=== PATIENT | male | born 1950 | race Caucasian/White ===

== ENCOUNTER 2019-04-22 05:34 | Inpatient (IN) | payer MEDICARE, MEDICAID ==
[~2019-04-22] VITALS: Ht 188 cm; Wt 83.5 kg
[2019-04-22] MEDS ORDERED: ONDANSETRON 2MG/ML, 2ML ONE (05:44)
--- NOTE | 2019-04-22 05:54 | NUR ---
PT BIB [facility] FOR ALOC. PT LIVES WITH MOTHER AND IS DEVELOPMENTALLY DELAYED. MOTHER REPORTS TO EMS HE HAD A GLF YESTERDAY. PT HAS A BRUISE TO HIS RIGHT EYE WITH SOME SWELLING. PT IS ALERT BUT ONLY KNOWS SELF. PT ARRIVED WITH EMS VOMITING. PT GIVEN ZOFRAN. PT HAS BEEN SEEN BY DR BARRIENTOS. EMS REPORTS FAMILY IS ON THEIR WAY. VS STABLE AT THIS TIME. WILL CONTINUE TO MONITOR.
[2019-04-22] MEDS ORDERED: ACETAMINOPHEN 650 MG SUPP ONE (05:59)
[2019-04-22] MEDS ORDERED: PLEASE ENTER ALLERGIES MC SCH (06:00)
[2019-04-22] MEDS ORDERED: ONDANSETRON 2MG/ML, 2ML IVPush ONE (06:00)
[2019-04-22] MEDS ORDERED: SODIUM CHLORIDE FLUSH 10ML SYR IVF ONE (06:00)
[2019-04-22] MEDS ORDERED: ACETAMINOPHEN 650 MG SUPP PR ONE (06:00)
[2019-04-22 06:30] LABS: MICROSCOPIC NOT IND
[2019-04-22 06:34] LABS: CULTURE INDICATED? NO
--- NOTE | 2019-04-22 06:48 | NUR ---
PT RESTING IN ROOM. NO ACUTE DISTRESS NOTED. VS STABLE. WILL CONTINUE TO MONITOR.
[2019-04-22 06:56] LABS: BASOPHILS # (AUTO) 0.01 x10^3/uL (0-0.1); BASOPHILS % (AUTO) 0 % (0-1); EOSINOPHILS # (AUTO) 0.03 x10^3/uL (0-0.4); EOSINOPHILS % (AUTO) 0 % (1-7); LYMPHOCYTES # (AUTO) 0.83 x10^3/uL (1-3.4); LYMPHOCYTES % (AUTO) 10 % (22-44); MD NO; MEAN CORPUSCULAR HEMOGLOBIN 34.7 pg (27.5-34.5); MEAN CORPUSCULAR HGB CONC 33.8 g/dL (33.2-36.2); MEAN CORPUSCULAR VOLUME 102.6 fL (81-97); MONOCYTES # (AUTO) 0.35 x10^3/uL (0.2-0.8); MONOCYTES % (AUTO) 4 % (2-9); NEUTROPHILS % (AUTO) 85 % (42-75); PLATELET COUNT 190 x10^3/uL (130-400); RED BLOOD COUNT 4.74 x10^6/uL (4.38-5.82); RED CELL DISTRIBUTION WIDTH 13.3 % (9.4-14.8)
--- NOTE | 2019-04-22 06:57 | NUR ---
RECEIVED BEDSIDE REPORT FROM JULITO JAIN.
--- NOTE | 2019-04-22 06:57 | NUR ---
BEDSIDE REPORT GIVEN TO JULITO LOZANO AND JULITO HOWARD
[2019-04-22 07:09] LABS: INTERNATIONAL NORMALIZED RATIO 1.05 (0.93-1.1)
[2019-04-22 07:14] LABS: ALBUMIN 3.9 g/dL (3.4-5.0); ANION GAP 9 mmol/L (5-15); CALCIUM 8.6 mg/dL (8.5-10.1); CHLORIDE 107 mmol/L (98-107)
[2019-04-22 07:20] LABS: ALANINE AMINOTRANSFERASE 29 U/L (12-78); ALKALINE PHOSPHATASE 76 U/L (45-117); BILIRUBIN,TOTAL 1.6 mg/dL (0.2-1.0); CREATININE 0.91 mg/dL (0.7-1.3); TOTAL PROTEIN 7.2 g/dL (6.4-8.2)
[2019-04-22 07:22] LABS: SALICYLATE LEVEL < 1.7 mg/dL (2.8-20.0)
--- NOTE | 2019-04-22 07:26 | NUR ---
PT RESTING ON GURNEY AT THIS TIME. NO C/O PAIN, N/V, SOB. VSS. PT ORIENTED TO SELF ONLY, FOLLOWING VERBAL COMMANDS.
--- NOTE | 2019-04-22 09:33 | NUR ---
left message for [facility] informing them family is bedside.
--- NOTE | 2019-04-22 09:51 | NUR ---
late entry for 0830 PT RESTING ON GURNEY. NO ACUTE DISTRESS NOTED. WILL CONTINUE TO MONITOR.
[2019-04-22] MEDS ORDERED: ONDANSETRON 2MG/ML, 2ML IVPush PRN (10:30)
[2019-04-22] MEDS ORDERED: ENALAPRILAT 1.25 MG/ML, 2ML IVPush PRN (10:30)
[2019-04-22] MEDS ORDERED: POLYETHYLENE GLYCOL 17 GM PACKET PO PRN (10:30)
[2019-04-22] MEDS ORDERED: ONDANSETRON ODT 4 MG PO PRN (10:30)
--- NOTE | 2019-04-22 10:49 | NUR ---
PT WITH ADMIT ORDERS. MOTHER AT BEDSIDE, REPORT GIVEN TO GABY VILA. AWAITING TRANSPORT.
[2019-04-22 12:55] VITALS: BP 136/74
[2019-04-22] MEDS ORDERED: GLUCAGON 1 MG IM PRN (14:30)
[2019-04-22] MEDS ORDERED: DEXTROSE 50%, 50ML SYRINGE IVPush PRN (14:30)
[2019-04-22] MEDS ORDERED: DEXTROSE 4 GM TAB.CHEW PO PRN (14:30)
[2019-04-22] MEDS: INSULIN LISPRO 100 UNITS/ML, PEN SQ-INSULIN SCH ×3 (17:00→21:00)
[2019-04-22] MEDS ORDERED: NICOTINE 21 MG/24 HR PATCH.TD24 TD SCH (17:00)
[2019-04-22 19:20] VITALS: BP 150/82
[2019-04-22] MEDS ORDERED: LORazepam 2 MG/ML, 1ML IVPush ONE (19:30)
[2019-04-22] MEDS ORDERED: LORazepam 2 MG/ML, 1ML ONE (19:45)
[2019-04-22] MEDS ORDERED: LEVETIRACETAM 1,000 MG in SODIUM CHLORIDE 0.9% 100 ML IV ONE (20:00)
--- NOTE | 2019-04-22 20:18 | NUR ---
VERIFIED WITH NURSING WHO VERIFIED WITH RESIDENT THAT 3000MG OF LEVETIRACETAM IS TO BE GIVEN TONIGHT (WAS ENTERED THREE SEPARATE 1000MG IV DOSES) Signed: 04/22/19 at 2019 by Faustina CLEVELAND
[2019-04-22] MEDS: SODIUM CHLORIDE FLUSH 10ML SYR IVF SCH (20:41)
[2019-04-22] MEDS: PRAVASTATIN 40 MG TABLET PO SCH (21:00)
[2019-04-22] MEDS: INSULIN GLARGINE 100 UNITS/ML, PEN SQ-INSULIN SCH (21:00)
[2019-04-22] MEDS: LEVETIRACETAM 1,000 MG in SODIUM CHLORIDE 0.9% 100 ML IV SCH (21:01)
[2019-04-23 00:26] VITALS: BP 120/74
[2019-04-23 03:41] VITALS: BP 120/77
[2019-04-23] MEDS: INSULIN LISPRO 100 UNITS/ML, PEN SQ-INSULIN SCH ×6 (06:23→20:28)
[2019-04-23 06:47] VITALS: BP 130/74
[2019-04-23] MEDS ORDERED: LEVETIRACETAM 1,000 MG in SODIUM CHLORIDE 0.9% 100 ML IV SCH (08:00)
[2019-04-23 08:07] LABS: BASOPHILS % (AUTO) 0 % (0-1); EOSINOPHILS # (AUTO) 0.02 x10^3/uL (0-0.4); EOSINOPHILS % (AUTO) 0 % (1-7); LYMPHOCYTES # (AUTO) 0.85 x10^3/uL (1-3.4); LYMPHOCYTES % (AUTO) 12 % (22-44); MD NO; MEAN CORPUSCULAR HEMOGLOBIN 34.2 pg (27.5-34.5); MEAN CORPUSCULAR HGB CONC 34.3 g/dL (33.2-36.2); MEAN CORPUSCULAR VOLUME 99.7 fL (81-97); MEAN PLATELET VOLUME 6.4 fL (7.4-10.4); MONOCYTES # (AUTO) 0.33 x10^3/uL (0.2-0.8); MONOCYTES % (AUTO) 5 % (2-9); NEUTROPHILS # (AUTO) 5.95 x10^3/uL (1.8-6.8); NEUTROPHILS % (AUTO) 83 % (42-75); PLATELET COUNT 171 x10^3/uL (130-400); RED BLOOD COUNT 4.45 x10^6/uL (4.38-5.82); RED CELL DISTRIBUTION WIDTH 13.3 % (9.4-14.8)
[2019-04-23] MEDS: SODIUM CHLORIDE FLUSH 10ML SYR IVF SCH ×2 (08:09→20:29)
[2019-04-23] MEDS: LEVETIRACETAM 1,000 MG in SODIUM CHLORIDE 0.9% 100 ML IV SCH (08:09)
[2019-04-23 08:19] LABS: ALANINE AMINOTRANSFERASE 25 U/L (12-78); ALBUMIN 3.6 g/dL (3.4-5.0); ANION GAP 9 mmol/L (5-15); CALCIUM 8.4 mg/dL (8.5-10.1); CHLORIDE 109 mmol/L (98-107); CREATININE 0.76 mg/dL (0.7-1.3)
[2019-04-23 08:21] LABS: ALKALINE PHOSPHATASE 73 U/L (45-117); BILIRUBIN,TOTAL 2.5 mg/dL (0.2-1.0); TOTAL PROTEIN 6.7 g/dL (6.4-8.2)
[2019-04-23 11:13] VITALS: BP 131/77
[2019-04-23] MEDS ORDERED: TAMSULOSIN 0.4 MG CAP.ER.24H PO ONE (14:45)
[2019-04-23 15:53] VITALS: BP 136/83
[2019-04-23] MEDS: SODIUM CHLORIDE 0.9% 1,000 ML IV SCH ×2 (15:55→20:28)
[2019-04-23] MEDS: NICOTINE 21 MG/24 HR PATCH.TD24 TD SCH (16:35)
[2019-04-23] MEDS: INSULIN GLARGINE 100 UNITS/ML, PEN SQ-INSULIN SCH (17:56)
[2019-04-23 19:32] VITALS: BP 150/74
[2019-04-23] MEDS: LEVETIRACETAM 750 MG in SODIUM CHLORIDE 0.9% 100 ML IV SCH (20:28)
[2019-04-23] MEDS: PRAVASTATIN 40 MG TABLET PO SCH (20:29)
[2019-04-24 00:27] LABS: MICROSCOPIC INDICATED
[2019-04-24 00:55] VITALS: BP 157/69
[2019-04-24 04:16] VITALS: BP 145/83
[2019-04-24] MEDS: INSULIN LISPRO 100 UNITS/ML, PEN SQ-INSULIN SCH ×6 (06:20→20:32)
[2019-04-24] MEDS: SODIUM CHLORIDE FLUSH 10ML SYR IVF SCH ×2 (08:53→20:32)
[2019-04-24] MEDS: TAMSULOSIN 0.4 MG CAP.ER.24H PO SCH (08:53)
[2019-04-24] MEDS: LEVETIRACETAM 750 MG in SODIUM CHLORIDE 0.9% 100 ML IV SCH ×2 (08:53→20:28)
[2019-04-24 08:55] VITALS: BP 148/87
[2019-04-24] MEDS: SODIUM CHLORIDE 0.9% 1,000 ML IV SCH (11:50)
--- NOTE | 2019-04-24 13:23 | NUR ---
REC: NPO with NGT for now Addendum: 04/24/19 at 1323 by Opal JOHNSON Amended: Links added.
--- NOTE | 2019-04-24 13:23 | NUR ---
[place] sheet with diet recommendations posted in room. Addendum: 04/24/19 at 1323 by Opal JOHNSON Amended: Links added.
[2019-04-24 13:48] VITALS: BP 144/79
[2019-04-24] MEDS: NICOTINE 21 MG/24 HR PATCH.TD24 TD SCH (18:03)
[2019-04-24 18:41] VITALS: BP 141/79
[2019-04-24] MEDS: PRAVASTATIN 40 MG TABLET PO SCH (20:32)
[2019-04-24] MEDS: INSULIN GLARGINE 100 UNITS/ML, PEN SQ-INSULIN SCH (20:32)
[2019-04-25] MEDS: SODIUM CHLORIDE 0.9% 1,000 ML IV SCH ×2 (00:03→13:32)
[2019-04-25 01:16] VITALS: BP 143/81
[2019-04-25 04:07] VITALS: BP 132/78
[2019-04-25 05:42] LABS: CHLORIDE 111 mmol/L (98-107)
[2019-04-25 06:00] LABS: ANION GAP 11 mmol/L (5-15); CALCIUM 8.3 mg/dL (8.5-10.1); CREATININE 0.66 mg/dL (0.7-1.3)
[2019-04-25 06:55] VITALS: BP 128/79
[2019-04-25] MEDS: INSULIN LISPRO 100 UNITS/ML, PEN SQ-INSULIN SCH ×5 (07:28→22:36)
[2019-04-25] MEDS: TAMSULOSIN 0.4 MG CAP.ER.24H PO SCH (08:33)
[2019-04-25] MEDS: LEVETIRACETAM 750 MG in SODIUM CHLORIDE 0.9% 100 ML IV SCH ×2 (08:37→20:31)
[2019-04-25] MEDS: SODIUM CHLORIDE FLUSH 10ML SYR IVF SCH ×2 (08:37→22:36)
[2019-04-25 13:34] VITALS: BP 140/81
[2019-04-25] MEDS: NICOTINE 21 MG/24 HR PATCH.TD24 TD SCH (16:38)
[2019-04-25] MEDS: D5%-0.9% NACL 1,000 ML IV SCH (16:38)
[2019-04-25 21:17] VITALS: BP 142/78
[2019-04-25] MEDS: ACETAMINOPHEN 325 MG TABLET PO PRN (22:34)
[2019-04-25] MEDS: PRAVASTATIN 40 MG TABLET PO SCH (22:35)
[2019-04-26] MEDS: D5%-0.9% NACL 1,000 ML IV SCH (02:33)
[2019-04-26 05:31] LABS: ANION GAP 6 mmol/L (5-15); CALCIUM 8.3 mg/dL (8.5-10.1); CHLORIDE 113 mmol/L (98-107)
[2019-04-26 05:32] LABS: CREATININE 0.65 mg/dL (0.7-1.3)
[2019-04-26 06:12] LABS: HEMOGLOBIN A1C 6.4 % (4.2-6.3)
[2019-04-26] MEDS ORDERED: SODIUM CHLORIDE 0.9% 1,000 ML IV SCH (06:30)
[2019-04-26] MEDS ORDERED: AMPICILLIN 500 MG in SODIUM CHLORIDE 0.9% 100 ML IV SCH (06:30)
[2019-04-26 06:50] VITALS: BP 152/79
[2019-04-26] MEDS: INSULIN LISPRO 100 UNITS/ML, PEN SQ-INSULIN SCH ×4 (07:22→23:04)
[2019-04-26 07:59] LABS: MEAN CORPUSCULAR HEMOGLOBIN 33.9 pg (27.5-34.5); MEAN CORPUSCULAR HGB CONC 33.6 g/dL (33.2-36.2); MEAN CORPUSCULAR VOLUME 100.9 fL (81-97); MEAN PLATELET VOLUME 6.8 fL (7.4-10.4); PLATELET COUNT 160 x10^3/uL (130-400); RED BLOOD COUNT 4.18 x10^6/uL (4.38-5.82); RED CELL DISTRIBUTION WIDTH 13.1 % (9.4-14.8)
[2019-04-26 08:15] LABS: BASOPHILS % (AUTO) 0 % (0-1); EOSINOPHILS # (AUTO) 0.04 x10^3/uL (0-0.4); EOSINOPHILS % (AUTO) 1 % (1-7); LYMPHOCYTES % (AUTO) 6 % (22-44); MD SCAN; MONOCYTES # (AUTO) 0.19 x10^3/uL (0.2-0.8); MONOCYTES % (AUTO) 2 % (2-9); NEUTROPHILS % (AUTO) 91 % (42-75)
[2019-04-26] MEDS: SODIUM CHLORIDE FLUSH 10ML SYR IVF SCH ×2 (09:08→22:57)
[2019-04-26] MEDS: TAMSULOSIN 0.4 MG CAP.ER.24H PO SCH (09:08)
[2019-04-26] MEDS: PIPERACILLIN/TAZO/PMX 4.5GM 100 ML IV SCH ×3 (09:09→22:57)
[2019-04-26] MEDS: LEVETIRACETAM 750 MG in SODIUM CHLORIDE 0.9% 100 ML IV SCH (10:03)
[2019-04-26 12:34] VITALS: BP 136/82
[2019-04-26] MEDS: ACETAMINOPHEN 325 MG TABLET PO PRN (12:46)
[2019-04-26] MEDS ORDERED: POTASSIUM PHOSPHATE 44 MEQ in SODIUM CHLORIDE 0.9% 500 ML IV ONE (16:00)
[2019-04-26] MEDS: INSULIN GLARGINE 100 UNITS/ML, PEN SQ-INSULIN SCH ×2 (16:15→23:12)
[2019-04-26] MEDS: NICOTINE 21 MG/24 HR PATCH.TD24 TD SCH (17:38)
[2019-04-26 20:36] VITALS: BP 137/86
[2019-04-26] MEDS: PRAVASTATIN 40 MG TABLET PO SCH (22:57)
[2019-04-26] MEDS: LEVETIRACETAM 100 MG/ML ORAL SOL NG SCH (22:58)
[2019-04-27 02:44] VITALS: BP 126/79
[2019-04-27] MEDS: PIPERACILLIN/TAZO/PMX 4.5GM 100 ML IV SCH ×4 (04:55→22:34)
[2019-04-27 05:16] LABS: BASOPHILS # (AUTO) 0.02 x10^3/uL (0-0.1); BASOPHILS % (AUTO) 0 % (0-1); EOSINOPHILS # (AUTO) 0.27 x10^3/uL (0-0.4); EOSINOPHILS % (AUTO) 4 % (1-7); LYMPHOCYTES # (AUTO) 0.55 x10^3/uL (1-3.4); LYMPHOCYTES % (AUTO) 8 % (22-44); MD NO; MEAN CORPUSCULAR HEMOGLOBIN 34.2 pg (27.5-34.5); MEAN CORPUSCULAR HGB CONC 33.7 g/dL (33.2-36.2); MEAN CORPUSCULAR VOLUME 101.7 fL (81-97); MEAN PLATELET VOLUME 7.1 fL (7.4-10.4); MONOCYTES # (AUTO) 0.41 x10^3/uL (0.2-0.8); MONOCYTES % (AUTO) 6 % (2-9); NEUTROPHILS # (AUTO) 5.26 x10^3/uL (1.8-6.8); NEUTROPHILS % (AUTO) 81 % (42-75); PLATELET COUNT 162 x10^3/uL (130-400); RED BLOOD COUNT 4.04 x10^6/uL (4.38-5.82); RED CELL DISTRIBUTION WIDTH 13.4 % (9.4-14.8)
[2019-04-27 05:24] LABS: ALANINE AMINOTRANSFERASE 25 U/L (12-78); ALBUMIN 2.3 g/dL (3.4-5.0); ANION GAP 6 mmol/L (5-15); CALCIUM 7.8 mg/dL (8.5-10.1); CHLORIDE 111 mmol/L (98-107)
[2019-04-27 05:26] LABS: ALKALINE PHOSPHATASE 62 U/L (45-117); BILIRUBIN,TOTAL 1.1 mg/dL (0.2-1.0); CREATININE 0.65 mg/dL (0.7-1.3)
[2019-04-27] MEDS ORDERED: POTASSIUM CHLORIDE 10% 40 MEQ/30 ML UDC PO ONE (07:00)
[2019-04-27] MEDS ORDERED: POTASSIUM PHOSPHATE 22 MEQ in SODIUM CHLORIDE 0.9% 500 ML IV ONE (07:00)
[2019-04-27 07:30] VITALS: BP 136/81
[2019-04-27] MEDS: SODIUM CHLORIDE FLUSH 10ML SYR IVF SCH ×2 (07:47→21:00)
[2019-04-27] MEDS: LEVETIRACETAM 100 MG/ML ORAL SOL NG SCH ×2 (07:47→20:53)
[2019-04-27] MEDS: TAMSULOSIN 0.4 MG CAP.ER.24H PO SCH (07:47)
[2019-04-27] MEDS: INSULIN LISPRO 100 UNITS/ML, PEN SQ-INSULIN SCH ×3 (07:48→21:18)
[2019-04-27] MEDS: SODIUM CHLORIDE 0.9% 1,000 ML IV SCH (07:50)
[2019-04-27] MEDS ORDERED: POTASSIUM CHLORIDE 20 MEQ PACKET ONE (07:59)
[2019-04-27 14:32] VITALS: BP 134/75
[2019-04-27] MEDS: NICOTINE 21 MG/24 HR PATCH.TD24 TD SCH (16:43)
[2019-04-27 18:45] VITALS: BP 135/82
[2019-04-27] MEDS: PRAVASTATIN 40 MG TABLET PO SCH (20:53)
[2019-04-27] MEDS: ACETAMINOPHEN 325 MG TABLET PO PRN (20:53)
[2019-04-27] MEDS: INSULIN GLARGINE 100 UNITS/ML, PEN SQ-INSULIN SCH (21:19)
[2019-04-28 01:09] VITALS: BP 128/80
[2019-04-28] MEDS: INSULIN LISPRO 100 UNITS/ML, PEN SQ-INSULIN SCH ×8 (02:47→20:58)
[2019-04-28] MEDS: PIPERACILLIN/TAZO/PMX 4.5GM 100 ML IV SCH ×4 (04:08→22:32)
[2019-04-28] MEDS: SODIUM CHLORIDE 0.9% 1,000 ML IV SCH (04:08)
[2019-04-28 05:43] LABS: BASOPHILS % (AUTO) 0 % (0-1); EOSINOPHILS # (AUTO) 0.29 x10^3/uL (0-0.4); EOSINOPHILS % (AUTO) 6 % (1-7); LYMPHOCYTES # (AUTO) 0.58 x10^3/uL (1-3.4); LYMPHOCYTES % (AUTO) 12 % (22-44); MD NO; MEAN CORPUSCULAR HEMOGLOBIN 33.7 pg (27.5-34.5); MEAN CORPUSCULAR VOLUME 102.2 fL (81-97); MEAN PLATELET VOLUME 7.5 fL (7.4-10.4); MONOCYTES # (AUTO) 0.29 x10^3/uL (0.2-0.8); MONOCYTES % (AUTO) 6 % (2-9); NEUTROPHILS # (AUTO) 3.72 x10^3/uL (1.8-6.8); NEUTROPHILS % (AUTO) 76 % (42-75); PLATELET COUNT 165 x10^3/uL (130-400); RED BLOOD COUNT 4.06 x10^6/uL (4.38-5.82)
[2019-04-28 05:50] LABS: ALBUMIN 2.1 g/dL (3.4-5.0); ANION GAP 9 mmol/L (5-15); CALCIUM 8.1 mg/dL (8.5-10.1); CHLORIDE 109 mmol/L (98-107)
[2019-04-28 05:54] LABS: ALANINE AMINOTRANSFERASE 65 U/L (12-78); ALKALINE PHOSPHATASE 74 U/L (45-117); BILIRUBIN,TOTAL 0.8 mg/dL (0.2-1.0); CREATININE 0.67 mg/dL (0.7-1.3); TOTAL PROTEIN 5.8 g/dL (6.4-8.2)
[2019-04-28 07:07] VITALS: BP 139/92
[2019-04-28] MEDS: SODIUM CHLORIDE FLUSH 10ML SYR IVF SCH ×2 (08:55→20:57)
[2019-04-28] MEDS: TAMSULOSIN 0.4 MG CAP.ER.24H PO SCH (08:56)
[2019-04-28] MEDS: LEVETIRACETAM 100 MG/ML ORAL SOL NG SCH ×2 (08:56→20:57)
[2019-04-28] MEDS ORDERED: INSULIN LISPRO 100 UNITS/ML, PEN SQ-INSULIN SCH ×2 (12:30→16:30)
[2019-04-28 14:45] VITALS: BP 134/86
[2019-04-28] MEDS: NICOTINE 21 MG/24 HR PATCH.TD24 TD SCH (17:39)
[2019-04-28 19:04] VITALS: BP 116/78
[2019-04-28] MEDS: PRAVASTATIN 40 MG TABLET PO SCH (20:57)
[2019-04-28] MEDS: INSULIN GLARGINE 100 UNITS/ML, PEN SQ-INSULIN SCH (20:59)
[2019-04-29] MEDS: INSULIN LISPRO 100 UNITS/ML, PEN SQ-INSULIN SCH ×5 (00:34→08:44)
[2019-04-29 01:10] VITALS: BP 136/81
[2019-04-29] MEDS: PIPERACILLIN/TAZO/PMX 4.5GM 100 ML IV SCH ×4 (04:36→22:00)
[2019-04-29 06:10] LABS: ANION GAP 7 mmol/L (5-15); CALCIUM 8.4 mg/dL (8.5-10.1); CHLORIDE 107 mmol/L (98-107)
[2019-04-29 06:11] LABS: CREATININE 0.69 mg/dL (0.7-1.3)
[2019-04-29 07:24] VITALS: BP 142/84
[2019-04-29] MEDS: LEVETIRACETAM 100 MG/ML ORAL SOL NG SCH ×2 (08:43→21:48)
[2019-04-29] MEDS: SODIUM CHLORIDE FLUSH 10ML SYR IVF SCH ×2 (08:43→21:59)
[2019-04-29] MEDS: TAMSULOSIN 0.4 MG CAP.ER.24H PO SCH (08:44)
[2019-04-29 12:30] VITALS: BP 125/82
[2019-04-29] MEDS: INSULIN REGULAR 100 UNITS/ML, 3ML VIAL SQ-INSULIN SCH ×4 (15:00→21:53)
[2019-04-29] MEDS: NICOTINE 21 MG/24 HR PATCH.TD24 TD SCH (16:24)
[2019-04-29 18:58] VITALS: BP 128/82
[2019-04-29] MEDS: PRAVASTATIN 40 MG TABLET PO SCH (21:49)
[2019-04-29] MEDS: INSULIN GLARGINE 100 UNITS/ML, PEN SQ-INSULIN SCH (21:52)
[2019-04-30 01:38] VITALS: BP 130/81
[2019-04-30] MEDS: INSULIN REGULAR 100 UNITS/ML, 3ML VIAL SQ-INSULIN SCH ×8 (03:41→21:55)
[2019-04-30] MEDS: PIPERACILLIN/TAZO/PMX 4.5GM 100 ML IV SCH ×4 (04:36→22:11)
[2019-04-30 07:00] VITALS: BP 126/78
[2019-04-30 08:09] LABS: ALBUMIN 2.2 g/dL (3.4-5.0); ANION GAP 7 mmol/L (5-15); CALCIUM 8.1 mg/dL (8.5-10.1); CHLORIDE 107 mmol/L (98-107)
[2019-04-30 08:12] LABS: ALANINE AMINOTRANSFERASE 70 U/L (12-78); ALKALINE PHOSPHATASE 95 U/L (45-117); BILIRUBIN,TOTAL 0.9 mg/dL (0.2-1.0); CREATININE 0.69 mg/dL (0.7-1.3); TOTAL PROTEIN 6.2 g/dL (6.4-8.2)
[2019-04-30] MEDS: TAMSULOSIN 0.4 MG CAP.ER.24H PO SCH (09:00)
[2019-04-30] MEDS: LEVETIRACETAM 100 MG/ML ORAL SOL NG SCH ×2 (09:17→21:54)
[2019-04-30] MEDS: SODIUM CHLORIDE FLUSH 10ML SYR IVF SCH ×2 (09:18→21:00)
[2019-04-30 13:00] VITALS: BP 132/84
[2019-04-30] MEDS: NICOTINE 21 MG/24 HR PATCH.TD24 TD SCH (17:00)
[2019-04-30 20:39] VITALS: BP 125/79
[2019-04-30] MEDS ORDERED: INSULIN GLARGINE 100 UNITS/ML, PEN SQ-INSULIN SCH (21:00)
[2019-04-30] MEDS: PRAVASTATIN 40 MG TABLET PO SCH (21:55)
[2019-05-01 00:25] VITALS: BP 117/75
[2019-05-01] MEDS: INSULIN REGULAR 100 UNITS/ML, 3ML VIAL SQ-INSULIN SCH ×8 (03:09→21:28)
[2019-05-01] MEDS: PIPERACILLIN/TAZO/PMX 4.5GM 100 ML IV SCH ×2 (04:48→11:00)
[2019-05-01 07:00] VITALS: BP 126/83
[2019-05-01 08:51] VITALS: BP 126/85
[2019-05-01] MEDS: SODIUM CHLORIDE FLUSH 10ML SYR IVF SCH ×2 (09:00→21:32)
[2019-05-01] MEDS: LEVETIRACETAM 100 MG/ML ORAL SOL NG SCH ×2 (09:20→21:51)
[2019-05-01 14:00] VITALS: BP 127/74
[2019-05-01] MEDS ORDERED: AZITHROMYCIN 500 MG TABLET PO ONE (14:30)
[2019-05-01] MEDS: CEFTRIAXONE PMX 1GM/50ML 50 ML IV SCH (16:38)
[2019-05-01] MEDS: NICOTINE 21 MG/24 HR PATCH.TD24 TD SCH (16:53)
[2019-05-01 19:55] VITALS: BP 121/76
[2019-05-01] MEDS: PRAVASTATIN 40 MG TABLET PO SCH (21:28)
[2019-05-01] MEDS: INSULIN GLARGINE 100 UNITS/ML, PEN SQ-INSULIN SCH (21:28)
[2019-05-02 00:41] VITALS: BP 138/85
[2019-05-02] MEDS: INSULIN REGULAR 100 UNITS/ML, 3ML VIAL SQ-INSULIN SCH ×8 (03:16→22:34)
[2019-05-02 05:31] LABS: MEAN CORPUSCULAR HEMOGLOBIN 34.1 pg (27.5-34.5); MEAN CORPUSCULAR HGB CONC 33.6 g/dL (33.2-36.2); MEAN CORPUSCULAR VOLUME 101.4 fL (81-97); MEAN PLATELET VOLUME 7.4 fL (7.4-10.4); PLATELET COUNT 293 x10^3/uL (130-400); RED BLOOD COUNT 4.42 x10^6/uL (4.38-5.82); RED CELL DISTRIBUTION WIDTH 13.3 % (9.4-14.8)
[2019-05-02 05:43] LABS: ALBUMIN 2.4 g/dL (3.4-5.0); ANION GAP 5 mmol/L (5-15); CALCIUM 8.1 mg/dL (8.5-10.1); CHLORIDE 108 mmol/L (98-107)
[2019-05-02 05:54] LABS: BASOPHILS # (AUTO) 0.01 x10^3/uL (0-0.1); BASOPHILS % (AUTO) 0 % (0-1); EOSINOPHILS # (AUTO) 0.23 x10^3/uL (0-0.4); EOSINOPHILS % (AUTO) 3 % (1-7); LYMPHOCYTES # (AUTO) 1.17 x10^3/uL (1-3.4); LYMPHOCYTES % (AUTO) 17 % (22-44); MD SCAN; MONOCYTES # (AUTO) 0.29 x10^3/uL (0.2-0.8); MONOCYTES % (AUTO) 4 % (2-9); NEUTROPHILS # (AUTO) 5.21 x10^3/uL (1.8-6.8); NEUTROPHILS % (AUTO) 75 % (42-75)
[2019-05-02 06:11] LABS: ALANINE AMINOTRANSFERASE 63 U/L (12-78); ALKALINE PHOSPHATASE 126 U/L (45-117); BILIRUBIN,TOTAL 1.1 mg/dL (0.2-1.0); CREATININE 0.69 mg/dL (0.7-1.3); TOTAL PROTEIN 6.6 g/dL (6.4-8.2)
[2019-05-02 07:00] VITALS: BP 125/79
[2019-05-02] MEDS: INSULIN GLARGINE 100 UNITS/ML, PEN SQ-INSULIN SCH ×2 (08:55→22:33)
[2019-05-02] MEDS: LEVETIRACETAM 100 MG/ML ORAL SOL NG SCH ×2 (08:55→22:18)
[2019-05-02] MEDS: SODIUM CHLORIDE FLUSH 10ML SYR IVF SCH ×2 (08:57→22:19)
[2019-05-02] MEDS ORDERED: AZITHROMYCIN 250 MG TABLET PO SCH (09:00)
[2019-05-02] MEDS: AZITHROMYCIN 200 MG/5 ML, ORAL SUSP PO SCH (09:48)
[2019-05-02 14:00] VITALS: BP 126/78
[2019-05-02] MEDS: CEFTRIAXONE PMX 1GM/50ML 50 ML IV SCH (14:21)
[2019-05-02] MEDS: NICOTINE 21 MG/24 HR PATCH.TD24 TD SCH (16:38)
[2019-05-02 20:25] VITALS: BP 128/82
[2019-05-02] MEDS: PRAVASTATIN 40 MG TABLET PO SCH (22:18)
[2019-05-03 01:10] VITALS: BP 141/88
[2019-05-03] MEDS: INSULIN REGULAR 100 UNITS/ML, 3ML VIAL SQ-INSULIN SCH ×7 (03:10→22:01)
[2019-05-03 05:59] LABS: CALCIUM 8.6 mg/dL (8.5-10.1); CHLORIDE 104 mmol/L (98-107)
[2019-05-03 06:03] LABS: ANION GAP 5 mmol/L (5-15); CREATININE 0.82 mg/dL (0.7-1.3)
[2019-05-03 06:41] VITALS: BP 119/82
[2019-05-03] MEDS: INSULIN GLARGINE 100 UNITS/ML, PEN SQ-INSULIN SCH (08:43)
[2019-05-03] MEDS: SODIUM CHLORIDE FLUSH 10ML SYR IVF SCH ×2 (08:44→20:50)
[2019-05-03] MEDS: AZITHROMYCIN 200 MG/5 ML, ORAL SUSP PO SCH (08:44)
[2019-05-03] MEDS: LEVETIRACETAM 100 MG/ML ORAL SOL NG SCH (08:44)
[2019-05-03] MEDS: ENOXAPARIN 40 MG/0.4 ML SQ SCH (12:02)
[2019-05-03 12:26] VITALS: BP 115/80
--- NOTE | 2019-05-03 13:44 | NUR ---
S[employer]IOR [employer] Recommend: KAILEY/ NTL -Up at 90 -No straws -Assist with meals -Meds floated Addendum: 05/03/19 at [address] Amended: Links added.
[2019-05-03] MEDS: CEFTRIAXONE PMX 1GM/50ML 50 ML IV SCH (14:46)
[2019-05-03] MEDS: NICOTINE 21 MG/24 HR PATCH.TD24 TD SCH (16:51)
[2019-05-03 18:28] VITALS: BP 136/84
[2019-05-03] MEDS: PRAVASTATIN 40 MG TABLET PO SCH (20:50)
[2019-05-03] MEDS: INSULIN HUMULIN 70/30, 3ML PEN SQ-INSULIN SCH (22:01)
[2019-05-04 00:57] VITALS: BP 121/82
[2019-05-04] MEDS: IBUPROFEN 600 MG TABLET PO PRN ×2 (04:49→21:52)
[2019-05-04 04:57] LABS: MEAN CORPUSCULAR HEMOGLOBIN 34.4 pg (27.5-34.5); MEAN CORPUSCULAR HGB CONC 34.2 g/dL (33.2-36.2); MEAN CORPUSCULAR VOLUME 100.7 fL (81-97); MEAN PLATELET VOLUME 7.1 fL (7.4-10.4); PLATELET COUNT 297 x10^3/uL (130-400); RED BLOOD COUNT 4.61 x10^6/uL (4.38-5.82); RED CELL DISTRIBUTION WIDTH 13.4 % (9.4-14.8)
[2019-05-04 05:15] LABS: ANION GAP 8 mmol/L (5-15); CALCIUM 8.8 mg/dL (8.5-10.1); CHLORIDE 106 mmol/L (98-107)
[2019-05-04 05:16] LABS: CREATININE 0.75 mg/dL (0.7-1.3)
[2019-05-04 05:38] LABS: BASOPHILS # (AUTO) 0.02 x10^3/uL (0-0.1); BASOPHILS % (AUTO) 0 % (0-1); EOSINOPHILS # (AUTO) 0.16 x10^3/uL (0-0.4); EOSINOPHILS % (AUTO) 1 % (1-7); LYMPHOCYTES # (AUTO) 1.35 x10^3/uL (1-3.4); LYMPHOCYTES % (AUTO) 11 % (22-44); MD SCAN; MONOCYTES # (AUTO) 0.37 x10^3/uL (0.2-0.8); MONOCYTES % (AUTO) 3 % (2-9); NEUTROPHILS # (AUTO) 10.79 x10^3/uL (1.8-6.8); NEUTROPHILS % (AUTO) 85 % (42-75)
[2019-05-04] MEDS: INSULIN REGULAR 100 UNITS/ML, 3ML VIAL SQ-INSULIN SCH ×4 (06:20→21:53)
[2019-05-04 06:32] VITALS: BP 110/75
[2019-05-04] MEDS: INSULIN HUMULIN 70/30, 3ML PEN SQ-INSULIN SCH ×2 (08:56→21:52)
[2019-05-04] MEDS: SODIUM CHLORIDE FLUSH 10ML SYR IVF SCH ×2 (08:56→21:35)
[2019-05-04] MEDS ORDERED: INSULIN HUMULIN 70/30, 3ML PEN SQ-INSULIN SCH (09:00)
[2019-05-04] MEDS: ENOXAPARIN 40 MG/0.4 ML SQ SCH (11:17)
[2019-05-04] MEDS ORDERED: INSULIN REGULAR 100 UNITS/ML, 3ML VIAL SQ-INSULIN SCH (12:00)
[2019-05-04 12:15] VITALS: BP 154/94
[2019-05-04 12:40] VITALS: BP 160/83
[2019-05-04] MEDS: NICOTINE 21 MG/24 HR PATCH.TD24 TD SCH (16:52)
[2019-05-04 18:52] VITALS: BP 120/84
[2019-05-04] MEDS: PRAVASTATIN 40 MG TABLET PO SCH (21:34)
[2019-05-05 00:46] VITALS: BP 99/51
[2019-05-05 06:18] LABS: BASOPHILS # (AUTO) 0.02 x10^3/uL (0-0.1); BASOPHILS % (AUTO) 0 % (0-1); EOSINOPHILS # (AUTO) 0.19 x10^3/uL (0-0.4); EOSINOPHILS % (AUTO) 2 % (1-7); LYMPHOCYTES # (AUTO) 1.57 x10^3/uL (1-3.4); LYMPHOCYTES % (AUTO) 18 % (22-44); MD NO; MEAN CORPUSCULAR HEMOGLOBIN 34.3 pg (27.5-34.5); MEAN CORPUSCULAR HGB CONC 33.9 g/dL (33.2-36.2); MEAN CORPUSCULAR VOLUME 101.2 fL (81-97); MEAN PLATELET VOLUME 7.5 fL (7.4-10.4); MONOCYTES # (AUTO) 0.49 x10^3/uL (0.2-0.8); MONOCYTES % (AUTO) 6 % (2-9); NEUTROPHILS # (AUTO) 6.27 x10^3/uL (1.8-6.8); NEUTROPHILS % (AUTO) 74 % (42-75); PLATELET COUNT 281 x10^3/uL (130-400); RED BLOOD COUNT 4.78 x10^6/uL (4.38-5.82)
[2019-05-05] MEDS: INSULIN REGULAR 100 UNITS/ML, 3ML VIAL SQ-INSULIN SCH ×4 (06:35→22:43)
[2019-05-05 06:55] VITALS: BP 118/81
[2019-05-05] MEDS: INSULIN HUMULIN 70/30, 3ML PEN SQ-INSULIN SCH ×2 (09:46→22:44)
[2019-05-05] MEDS: SODIUM CHLORIDE FLUSH 10ML SYR IVF SCH ×2 (09:48→21:00)
[2019-05-05] MEDS: ENOXAPARIN 40 MG/0.4 ML SQ SCH (11:12)
[2019-05-05 12:31] VITALS: BP 106/77
[2019-05-05] MEDS: NICOTINE 21 MG/24 HR PATCH.TD24 TD SCH (16:59)
[2019-05-05 19:40] VITALS: BP 118/81
[2019-05-05] MEDS: PRAVASTATIN 40 MG TABLET PO SCH (22:42)
[2019-05-06 01:50] VITALS: BP 95/65
[2019-05-06 06:47] VITALS: BP 120/78
[2019-05-06] MEDS: INSULIN REGULAR 100 UNITS/ML, 3ML VIAL SQ-INSULIN SCH ×4 (07:00→21:18)
[2019-05-06] MEDS: INSULIN HUMULIN 70/30, 3ML PEN SQ-INSULIN SCH ×2 (08:56→21:18)
[2019-05-06] MEDS: SODIUM CHLORIDE FLUSH 10ML SYR IVF SCH ×2 (08:57→21:00)
[2019-05-06] MEDS: ENOXAPARIN 40 MG/0.4 ML SQ SCH (11:56)
[2019-05-06 13:18] VITALS: BP 122/80
[2019-05-06] MEDS: NICOTINE 21 MG/24 HR PATCH.TD24 TD SCH (16:49)
[2019-05-06 18:40] VITALS: BP 121/80
[2019-05-06] MEDS: PRAVASTATIN 40 MG TABLET PO SCH (21:18)
[2019-05-07 04:47] VITALS: BP 124/85
[2019-05-07] MEDS: INSULIN REGULAR 100 UNITS/ML, 3ML VIAL SQ-INSULIN SCH ×4 (06:13→20:49)
[2019-05-07 07:08] VITALS: BP 120/79
[2019-05-07] MEDS ORDERED: INSTRUCTION SEE COMMENTS XX PRN ×2 (08:00)
[2019-05-07] MEDS ORDERED: QUETIAPINE 25MG TABLET PO PRN (08:00)
[2019-05-07] MEDS ORDERED: AVOID BENZODIAZEPINES MC PRN (08:00)
[2019-05-07] MEDS: SODIUM CHLORIDE FLUSH 10ML SYR IVF SCH (09:00)
[2019-05-07] MEDS: INSULIN HUMULIN 70/30, 3ML PEN SQ-INSULIN SCH ×2 (09:21→20:49)
[2019-05-07] MEDS: ENOXAPARIN 40 MG/0.4 ML SQ SCH (12:00)
[2019-05-07 12:29] VITALS: BP 104/71
[2019-05-07] MEDS: NICOTINE 21 MG/24 HR PATCH.TD24 TD SCH (17:40)
[2019-05-07 19:30] VITALS: BP 119/84
[2019-05-07] MEDS: PRAVASTATIN 40 MG TABLET PO SCH (20:49)
[2019-05-07] MEDS: MELATONIN 3 MG TABLET PO SCH (20:49)
[2019-05-08] MEDS: INSULIN REGULAR 100 UNITS/ML, 3ML VIAL SQ-INSULIN SCH ×4 (06:15→20:54)
[2019-05-08 06:41] VITALS: BP 105/74
[2019-05-08 08:16] LABS: CREATININE 0.67 mg/dL (0.7-1.3)
[2019-05-08] MEDS: INSULIN HUMULIN 70/30, 3ML PEN SQ-INSULIN SCH ×2 (09:28→20:54)
[2019-05-08] MEDS: ENOXAPARIN 40 MG/0.4 ML SQ SCH (12:00)
[2019-05-08 13:33] VITALS: BP 114/73
[2019-05-08] MEDS: NICOTINE 21 MG/24 HR PATCH.TD24 TD SCH (17:02)
[2019-05-08 19:54] VITALS: BP 111/78
[2019-05-08] MEDS: PRAVASTATIN 40 MG TABLET PO SCH (20:54)
[2019-05-08] MEDS: MELATONIN 3 MG TABLET PO SCH (20:54)
[2019-05-09] MEDS: INSULIN REGULAR 100 UNITS/ML, 3ML VIAL SQ-INSULIN SCH ×4 (06:45→21:00)
[2019-05-09 09:17] VITALS: BP 120/71
[2019-05-09] MEDS: INSULIN HUMULIN 70/30, 3ML PEN SQ-INSULIN SCH ×2 (09:26→21:03)
[2019-05-09] MEDS: ENOXAPARIN 40 MG/0.4 ML SQ SCH (12:16)
--- NOTE | 2019-05-09 16:49 | NUR ---
REC GROUND/THIN; ORANGE SHEET WITH RECOMMENDED DIET AND SWALLOW STRATEGIES POSTED AT BEDSIDE. Addendum: 05/09/19 at 1649 by Brittanie JOHNSON Amended: Links added.
[2019-05-09] MEDS: NICOTINE 21 MG/24 HR PATCH.TD24 TD SCH (17:03)
[2019-05-09 17:52] VITALS: BP 108/73
[2019-05-09 19:19] VITALS: BP 106/68
[2019-05-09] MEDS: MELATONIN 3 MG TABLET PO SCH (21:04)
[2019-05-09] MEDS: PRAVASTATIN 40 MG TABLET PO SCH (21:04)
[2019-05-10 00:30] VITALS: BP 128/78
[2019-05-10] MEDS: INSULIN REGULAR 100 UNITS/ML, 3ML VIAL SQ-INSULIN SCH ×2 (07:00→11:00)
[2019-05-10 08:34] VITALS: BP 110/75
[2019-05-10] MEDS: INSULIN HUMULIN 70/30, 3ML PEN SQ-INSULIN SCH (10:04)
[2019-05-10] MEDS: ENOXAPARIN 40 MG/0.4 ML SQ SCH (12:12)
[2019-05-10 13:23] VITALS: BP 113/70
== END 2019-05-10 15:00 | disposition home health service (06) | DRG 100 ==
LOC: ED 07:25 → EDIP 10:17 → 4NOR 11:24 → OBSVTOIN 04-23 12:37 → 4NOR 04-23 22:32
PROVIDERS: ADMIT Family Medicine; ATTEND Family Medicine
PROC: 0T9B70Z Drainage of Bladder with Drainage Device, Via Natural or Artificial Opening (ICD-10-PCS; principal; 2019-04-22)
DX: G40.409 Other generalized epilepsy and epileptic syndromes, not intractable, without status epilepticus (principal); J69.0 Pneumonitis due to inhalation of food and vomit; G93.40 Encephalopathy, unspecified; F17.200 Nicotine dependence, unspecified, uncomplicated; I10 Essential (primary) hypertension; N32.89 Other specified disorders of bladder; R13.10 Dysphagia, unspecified; W18.30XA Fall on same level, unspecified, initial encounter; F07.81 Postconcussional syndrome; Y93.89 Activity, other specified; Y92.89 Other specified places as the place of occurrence of the external cause; Y99.8 Other external cause status; Z82.49 Family history of ischemic heart disease and other diseases of the circulatory system; Z86.73 Personal history of transient ischemic attack (TIA), and cerebral infarction without residual deficits; Z79.899 Other long term (current) drug therapy; Z79.4 Long term (current) use of insulin; B95.2 Enterococcus as the cause of diseases classified elsewhere
CPT/HCPCS: 36415; 70450; 70551; 71045; 74018; 80048; 80053; 80307; 81001; 81003; 82140; 82565; 82607; 82962; 83036; 83605; 83735; 84100; 84145; 84443; 85025; 85610; 85730; 87040; 87077; 87086; 87186; 93005; 95819; 96374; G0378; J0696; J1650; J1815; J1953; J2405; J2543; J7042; J0290; J2060; J7030; J7040

== ENCOUNTER 2020-06-08 08:52 | Day surgery (SDC) | payer MEDICARE, MEDICAID ==
[2020-06-05 10:39] LABS: BASOPHILS # (AUTO) 0.01 x10^3/uL (0-0.1); BASOPHILS % (AUTO) 0 % (0-1); EOSINOPHILS # (AUTO) 0.07 x10^3/uL (0-0.4); EOSINOPHILS % (AUTO) 2 % (1-7); LYMPHOCYTES # (AUTO) 1.09 x10^3/uL (1-3.4); LYMPHOCYTES % (AUTO) 35 % (22-44); MD NO; MEAN CORPUSCULAR HEMOGLOBIN 34.1 pg (27.5-34.5); MEAN CORPUSCULAR VOLUME 100.4 fL (81-97); MEAN PLATELET VOLUME 6.8 fL (7.4-10.4); MONOCYTES # (AUTO) 0.17 x10^3/uL (0.2-0.8); MONOCYTES % (AUTO) 5 % (2-9); NEUTROPHILS # (AUTO) 1.81 x10^3/uL (1.8-6.8); NEUTROPHILS % (AUTO) 58 % (42-75); PLATELET COUNT 213 x10^3/uL (130-400); RED BLOOD COUNT 4.53 x10^6/uL (4.38-5.82); RED CELL DISTRIBUTION WIDTH 14.1 % (9.4-14.8)
[2020-06-05 10:46] LABS: ALANINE AMINOTRANSFERASE 39 U/L (12-78); ALBUMIN 4.3 g/dL (3.4-5.0); ANION GAP 5 mmol/L (5-15); CHLORIDE 100 mmol/L (98-107); CREATININE 0.85 mg/dL (0.7-1.3)
[2020-06-05 10:49] LABS: ALKALINE PHOSPHATASE 74 U/L (45-117); BILIRUBIN,TOTAL 1.8 mg/dL (0.2-1.0); CALCIUM 8.8 mg/dL (8.5-10.1); TOTAL PROTEIN 7.3 g/dL (6.4-8.2)
[~2020-06-08] VITALS: Ht 185.4 cm; Wt 63.3 kg
[~2020-06-08 08:52] MED LIST: INSU100C SQ-INSULIN; INSU100I34 SC; INSULIN 75/25 SQ; LISI-167 PO; PRAV20TA2 PO
[2020-06-08] MEDS ORDERED: BUPIVACAINE/EPI 0.5% 1:200K ONE (09:25)
[2020-06-08 09:29] VITALS: BP 97/49
[2020-06-08] MEDS ORDERED: LACTATED RINGERS 1,000 ML IV SCH ×2 (09:33→12:02)
[2020-06-08] MEDS ORDERED: DEXTROSE 50%, 50ML SYRINGE IVPush ONE (10:00)
[2020-06-08] MEDS ORDERED: CHLORHEXIDINE 15 ML UDC MM ONE (10:00)
[2020-06-08] MEDS ORDERED: FENTANYL PF 250 MCG/5ML ONE (10:59)
[2020-06-08] MEDS ORDERED: KETOROLAC 30 MG/1 ML ONE (11:12)
[2020-06-08] MEDS ORDERED: SUGAMMADEX 200 MG/2 ML IVPush ONE (11:12)
[2020-06-08] MEDS ORDERED: NEOSTIGMINE 1 MG/ML, 10ML ONE (11:13)
[2020-06-08] MEDS ORDERED: PROPOFOL 10 MG/ML, 20ML ONE (11:13)
[2020-06-08] MEDS ORDERED: DEXAMETHASONE 4 MG/ML, 1ML ONE (11:13)
[2020-06-08] MEDS ORDERED: ROCURONIUM 10MG/ML,5ML ONE (11:13)
[2020-06-08] MEDS ORDERED: GLYCOPYRROLATE 0.2MG/1ML, 5ML ONE (11:13)
[2020-06-08] MEDS ORDERED: CEFAZOLIN 1,000 MG ONE (11:13)
[2020-06-08] MEDS ORDERED: SUCCINYLCHOLINE 20 MG/ML, 10ML ONE (11:13)
[2020-06-08] MEDS ORDERED: ONDANSETRON 2MG/ML, 2ML ONE (11:13)
[2020-06-08] MEDS ORDERED: DIAZEPAM 5 MG/ML, 2ML IVPush PRN (11:30)
[2020-06-08] MEDS ORDERED: MEPERIDINE/PF 25MG/0.5ML IVPush PRN (11:30)
[2020-06-08] MEDS ORDERED: PROMETHAZINE 25 MG/ML, 1ML IV PRN (11:30)
[2020-06-08] MEDS ORDERED: hydrALAzine 20 MG/ML, 1ML IV PRN (11:30)
[2020-06-08] MEDS ORDERED: ACETAMINOPHEN 325 MG TABLET PO PRN (11:30)
[2020-06-08] MEDS ORDERED: LABETALOL 5MG/ML, 20ML IV PRN (11:30)
[2020-06-08] MEDS ORDERED: OXYcodone 5 MG/5 ML ORAL.SOL UDC PO PRN (11:30)
[2020-06-08] MEDS ORDERED: HYDROmorphone 2 MG/ML, 1ML IVPush PRN (11:30)
[2020-06-08] MEDS ORDERED: ALBUTEROL SULFATE 2.5 MG/3 ML NPPB PRN (11:30)
[2020-06-08] MEDS ORDERED: FENTANYL PF 100 MCG/2ML ONE (12:19)
[2020-06-08] MEDS ORDERED: HYDROcodone/APAP 7.5-325MG/15ML UDC ONE (12:19)
[2020-06-08] MEDS: FENTANYL PF 100 MCG/2ML IV PRN ×2 (12:22→12:27)
[2020-06-08] MEDS ORDERED: HYDROcodone/APAP 7.5-325MG/15ML UDC PO ONE (12:30)
[2020-06-08] MEDS ORDERED: HYDROcodone/APAP 5/325 TABLET PO PRN (12:30)
[2020-06-08] MEDS ORDERED: ONDANSETRON 2MG/ML, 2ML IVPush PRN (12:30)
[2020-06-08] MEDS ORDERED: morphine SULFATE 10 MG/ML, 1ML IVPush PRN (12:30)
[2020-06-08] MEDS ORDERED: PROMETHAZINE 25 MG/ML, 1ML ONE (12:38)
== END 2020-06-08 15:30 | disposition home or self-care (01) ==
LOC: OUT 08:52
PROVIDERS: ATTEND Surgery
DX: K80.10 Calculus of gallbladder with chronic cholecystitis without obstruction (principal); Z11.59 Encounter for screening for other viral diseases; E10.9 Type 1 diabetes mellitus without complications; Z79.4 Long term (current) use of insulin; K21.9 Gastro-esophageal reflux disease without esophagitis; R62.50 Unspecified lack of expected normal physiological development in childhood; Z98.890 Other specified postprocedural states; Z87.891 Personal history of nicotine dependence; Z82.49 Family history of ischemic heart disease and other diseases of the circulatory system; Z82.3 Family history of stroke
CPT/HCPCS: 36415; 47562; 71046; 80053; 82962; 85025; 87635; 88304; 93005; J0690; J1100; J1885; J2405; J2550; J2704; J3010; J7120; J2710; J0330